=== PATIENT | male | born 1960 | race Two or more races ===

== ENCOUNTER 2021-02-10 22:51 | Emergency (ER) | payer SELFPAY ==
[~2021-02-10] VITALS: Ht 182.9 cm; Wt 81.6 kg
[2021-02-10 23:53] VITALS: BP 139/78
== END 2021-02-11 00:47 | disposition home or self-care (01) ==
LOC: ER 22:51
DX: H57.11 Ocular pain, right eye (principal); H57.89 Other specified disorders of eye and adnexa